=== PATIENT | male | born 1960 | race Caucasian/White ===

== ENCOUNTER 2023-08-12 14:18 | Inpatient (IN) | payer OTHER, SELFPAY ==
[2023-08-12] VITALS (11 sets, daily range): BP systolic 114–163; BP diastolic 62–108; BMI 38.0
--- NOTE | 2023-08-12 09:34 | ED.GENMED ---
History of Present Illness
<Fanta Villaseñor PA-C - Last Filed: 08/12/23 13:52>
General
Chief Complaint: Skin Problem
Source: patient
Exam Limitations: none
Time Seen by Provider: 08/12/23 09:29
Nursing documentation reviewed up to this point in time: agreed with
Travel History
Have you had any contact with someone who has COVID-19?: No
Do you have any symptoms of coronavirus? Fever > 100 degrees, chills, cough, shortness of breath, sore throat, loss of taste or smell, muscle aches, or headache?: No
History of Present Illness
History of Present Illness:
63-year-old male with history of hypertension presenting emergency department today with concerns of a rash on his right lower extremity. Patient states that it started as a small break in his skin a week ago, and yesterday he noticed a rash
surrounding the lesion as well as swelling and a rash extending the anterior surface of his right lower extremity. Patient also states that he woke up with a fever of 102 yesterday. Patient also states that he has had abdominal pain, nausea,
vomiting throughout last night. 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 Patient has never had anything like this before. Patient denies any history of long distance travel,
new medications, recent hospitalizations, cancer.
Past History
<Fanta Villaseñor PA-C - Last Filed: 08/12/23 13:52>
Past History
ED Past Medical History: HTN and Other (Chronic back pain)
ED Past Surgical History: Orthopedic (Lumbar laminectomy June 2011)
Social History
Alcohol: Occasional
Personal:
Living: with family
Employment: Employed
Review of Systems
<Fanta Villaseñor PA-C - Last Filed: 08/12/23 13:52>
Review of Systems
All Other Systems: ROS reviewed and negative except as documented in HPI and ROS
Phy Exam
<Fanta Villaseñor PA-C - Last Filed: 08/12/23 13:52>
Physical Exam
Physical Exam:
General: Patient is well appearing and in no acute distress; non-toxic
Skin: Warm and dry, small abrasion noted to the dorsum of the foot with surrounding erythema and swelling/warmth, with a small break and erythema extending again to the right anterior calf. No open lesions, no drainage, no subcutaneous nodules.
Head: Normocephalic, atraumatic
Eyes: Sclera non-icteric. EOMs intact.
Cardiac: Regular rate and rhythm, no murmurs.
Peripheral Vascular: 2+ dorsalis pedis pulses b/l.
Pulm: Normal respiratory effort. no wheezes, rales, or rhonchi
Abdomen: No abdominal tenderness to palpation.
Musculoskeletal: 5/5 strength in bilateral upper extremities. No bony tenderness to palpation of the right lower extremity.
Neuro: CN II-XII intact, no focal neurologic deficits.
Psychiatric: Appropriate mood and affect.
Course
<Fanta Villaseñor PA-C - Last Filed: 08/12/23 13:52>
Orders/Labs/Results
Orders:
Orders
08/12/23 10:00
Blood Culture Q30M
QUETA Source: Blood/Venous
Specimen Description:
08/12/23 10:10
Complete Blood Count/With Diff Urgent
Comprehensive Metabolic Panel Urgent
08/12/23 10:19
Acetaminophen [Tylenol] 650 mg PO NOW STA
08/12/23 10:26
Cephalexin Monohydrate [Keflex] 500 mg PO NOW STA
Sulfamethox./Trimethoprim Ds [Bactrim Ds 800 mg/160 mg] 1 tablet PO NOW STA
08/12/23 10:30
Blood Culture Q30M
QUETA Source: Blood/Venous
Specimen Description:
08/12/23 10:58
CeFAZolin 2 GRAM [Ancef] 2 grams in 10 ml IV NOW
08/12/23 12:21
HYDROmorphone [Dilaudid] 0.5 mg IV NOW STA
Ondansetron Injectable [Zofran] 4 mg IV NOW STA
08/12/23 14:00
VANCOMYCIN Pharmacy to Dose [VANCOCIN Pharmacy to Dose] 1 each Pharmacy To Prepare [Call Pharmacy To Prepare] 0 ml IV PER PROTOCOL
Abnormal Lab Results
08/12/23
10:10
WBC 22.6 H 10^3/uL
(4.8-10.8)
RBC 4.63 L 10^6/uL
(4.70-6.10)
MCH 31.1 H pg
(27.0-31.0)
Abs Immat Gran (auto) 0.1 H 10^3/uL
(0-0.05)
Absolute Neuts (auto) 20.3 H 10^3/uL
(1.4-6.5)
Absolute Lymphs (auto) 1.1 L 10^3/uL
(1.2-3.4)
Absolute Monos (auto) 1.0 H 10^3/uL
(0.1-0.6)
Neutrophils % 90.0 H %
(42.2-75.2)
Lymphocytes % 4.7 L %
(20.5-51.1)
Glucose 126 H mg/dl
(70-99)
Total Bilirubin 1.7 H mg/dl
(0.2-1.3)
08/12/23 10:10
08/12/23 10:10
Vital Signs
Initial and Last Documented VS:
Initial Vital Signs
Temp Pulse Resp BP Pulse Ox
99.9 F 108 18 152/108 95
08/12/23 09:19 08/12/23 09:19 08/12/23 09:19 08/12/23 09:19 08/12/23 09:19
Last Documented Vital Signs
Temp Pulse Resp BP Pulse Ox
99.9 F 75 17 150/97 99
08/12/23 09:19 08/12/23 12:30 08/12/23 12:30 08/12/23 12:00 08/12/23 11:00
<Jomar Huffman, DO - Last Filed: 08/12/23 10:49>
Orders/Labs/Results
Orders:
Orders
08/12/23 10:00
Blood Culture Q30M
QUETA Source: Blood/Venous
Specimen Description:
08/12/23 10:10
Complete Blood Count/With Diff Urgent
Comprehensive Metabolic Panel Urgent
08/12/23 10:19
Acetaminophen [Tylenol] 650 mg PO NOW STA
08/12/23 10:26
Cephalexin Monohydrate [Keflex] 500 mg PO NOW STA
Sulfamethox./Trimethoprim Ds [Bactrim Ds 800 mg/160 mg] 1 tablet PO NOW STA
08/12/23 10:30
Blood Culture Q30M
QUETA Source: Blood/Venous
Specimen Description:
08/12/23 10:58
CeFAZolin 2 GRAM [Ancef] 2 grams in 10 ml IV NOW
08/12/23 12:21
HYDROmorphone [Dilaudid] 0.5 mg IV NOW STA
Ondansetron Injectable [Zofran] 4 mg IV NOW STA
08/12/23 14:00
VANCOMYCIN Pharmacy to Dose [VANCOCIN Pharmacy to Dose] 1 each Pharmacy To Prepare [Call Pharmacy To Prepare] 0 ml IV PER PROTOCOL
Abnormal Lab Results
08/12/23
10:10
WBC 22.6 H 10^3/uL
(4.8-10.8)
RBC 4.63 L 10^6/uL
(4.70-6.10)
MCH 31.1 H pg
(27.0-31.0)
Abs Immat Gran (auto) 0.1 H 10^3/uL
(0-0.05)
Absolute Neuts (auto) 20.3 H 10^3/uL
(1.4-6.5)
Absolute Lymphs (auto) 1.1 L 10^3/uL
(1.2-3.4)
Absolute Monos (auto) 1.0 H 10^3/uL
(0.1-0.6)
Neutrophils % 90.0 H %
(42.2-75.2)
Lymphocytes % 4.7 L %
(20.5-51.1)
Glucose 126 H mg/dl
(70-99)
Total Bilirubin 1.7 H mg/dl
(0.2-1.3)
08/12/23 10:10
08/12/23 10:10
Vital Signs
Initial and Last Documented VS:
Initial Vital Signs
Temp Pulse Resp BP Pulse Ox
99.9 F 108 18 152/108 95
08/12/23 09:19 08/12/23 09:19 08/12/23 09:19 08/12/23 09:19 08/12/23 09:19
Last Documented Vital Signs
Temp Pulse Resp BP Pulse Ox
99.9 F 75 17 150/97 99
08/12/23 09:19 08/12/23 12:30 08/12/23 12:30 08/12/23 12:00 08/12/23 11:00
[place];Fanta Villaseñor PA-C - Last Filed: 08/12/23 13:52>
MDM/Problems Addressed
Differential Diagnosis Includes:
Differentials include cellulitis, erysipelas, septic arthritis, sporotrichosis�
MDM/Problems Addressed:
Right lower extremity pain
Chronic conditions affecting care:
high blood pressure
Chronic conditions affecting care: HTN
<Fanta Villaseñor PA-C - Last Filed: 08/12/23 13:52>
*Critical Care Note
Total Time (30-74mins, 75-104mins- exclusive of procedures): Not Applicable
<Fanta Villaseñor PA-C - Last Filed: 08/12/23 13:52>
Patient Management
Escalation/DeEscalation of care consider admission/obs:
63-year-old male with history of hypertension presenting emergency department today with concerns of a rash on his right lower extremity. Patient states that started yesterday. Patient also has a fever and has had nausea and vomiting overnight.
Considering patient's rapid onset of the rash, his fever, and his elevated white count, we will admit for IV antibiotics.
<Fanta Villaseñor PA-C - Last Filed: 08/12/23 13:52>
Update Note
Update Note:
12:24 pm-- I was called into the room by nursing that patient is now having severe right knee pain and nausea, does not appear that the rash is spreading to the knee. Pain medication ordered
ED Attending Note
<Fanta Villaseñor PA-C - Last Filed: 08/12/23 13:52>
-
Portions of this chart may have been created with voice recognition software.� Occasional wrong word or��sound alike� substitutions may have occurred due to the inherent limitations of voice recognition software.
<Jomar Huffman DO - Last Filed: 08/12/23 10:49>
ED Attending Note
Patient seen and examined by attending physician: Yes
I performed the substantive portion of visit, reviewed & personally made and approve the management plan that is documented in note by myself or JUAN JOSE.: Yes
ED Attending Note:
I have seen and evaluated the patient with a [id number] encounter. I have spoken to the advance practicer provider and involved in the medical history, the physical exam, medical decision making.
Evaluation and management service: agree unless noted differently below.
Results interpretation: agree unless noted differently below.
Focused HPI: 63-year-old male presenting for evaluation of cellulitis. He did have an abrasion on the dorsum of his right foot several days ago. He noticed the progression of redness over the past 24 hours.
Physical exam: Erythema noted to dorsum of right foot. Small abrasion noted. Foot is neurovascularly intact. No crepitus
Medical Decision Making: Family concerned about DVT. The erythema to his sanchez on his foot is anterior. There is no tenderness to deep venous palpation. Discussed low yield and ultrasound. Exam is more consistent with cellulitis. Given the rapid
progression, will start Keflex and Bactrim
Update:
10:50 AM patient found to have leukocytosis of 22. Given the fevers at home, the leukocytosis and the rapid progression of cellulitis, will give dose of Ancef and admit
Discharge Plan
Departure
Patient Disposition: Admit
Date of Disposition: 08/12/23
Time of Disposition: 11:02
Admit to: Med/Surg
Presentation/result/management discussed w/ accepting MD/DO: Hospitalist
Patient with high blood pressure during this ER visit?: Yes
Condition: Fair
Discharge Problem:
Cellulitis
Prescriptions:
No Action
Theragran Tablet
1 tab PO DAILY
amlodipine 10 mg tablet
10 mg PO DAILY
diphenhydramine HCl [Benadryl] 25 mg Capsule
50 mg PO DAILYPRN PRN (Reason: allergic reaction)
ibuprofen 200 mg Tablet
400 mg PO Q6H PRN (Reason: mild pain)
losartan 100 mg tablet
100 mg PO DAILY
Artificial Tears (PF) Dropperette
1 drp BOTH EYES QIDPRN PRN (Reason: dry eyes)
Referrals:
Lizette Lamar MD [Family Provider] -
Interventions
Interventions:
*Risk Screen - Suicide Last Done: 08/12/23 09:19
*General Assessment Last Done: 08/12/23 09:19
*Neglect/Abuse Screening Last Done: 08/12/23 09:19
ED- Fall Risk Assessment Last Done: 08/12/23 11:00
*ED COVID-19 Vaccine History Last Done: 08/12/23 09:19
ED-Skin Assessment Last Done: 08/12/23 10:01
Discharge Date and Time
Print Language: OCCITAN
[2023-08-12 10:17] LABS: % Basophils 0.3 % (0-2); % Immature Granulocytes 0.4 % (0-0.5); % Lymphocytes 4.7 % (20.5-51.1); % Monocytes 4.6 % (1.7-9.3); Absolute Basophils 0.1 10^3/uL (0-0.2); Absolute Immature Granulocytes 0.1 10^3/uL (0-0.05); Absolute Lymphocytes 1.1 10^3/uL (1.2-3.4); Absolute Neutrophils 20.3 10^3/uL (1.4-6.5); Hematocrit 42.4 % (39.0-52.0); Hemoglobin 14.4 g/dL (13.0-18.0); Mean Corpuscular Hgb 31.1 pg (27.0-31.0); Mean Corpuscular Volume 91.6 fL (80.0-94.0); Mean Platelet Volume 9.7 fL (7.4-10.4); Nucleated Red Blood Cells % 0 % (-); Platelet Count 231 10^3/uL (130-400); Red Blood Cell Count 4.63 10^6/uL (4.70-6.10); Red Cell Dist. Width 13.1 % (11.5-14.5); White Blood Cell Count 22.6 10^3/uL (4.8-10.8)
[2023-08-12] MEDS: TYLENOL 650 MG PO (10:23)
[2023-08-12] MEDS: BACTRIM DS 800 MG/160 MG 1 TABLET PO (10:32)
[2023-08-12] MEDS: KEFLEX 500 MG PO (10:32)
[2023-08-12 10:41] LABS: ALT (SGPT) 19 U/L (0-50); AST (SGOT) 26 U/L (17-59); Albumin 4.5 g/dl (3.5-5.0); Alkaline Phosphatase 103 U/L (38-126); Blood Urea Nitrogen 15 mg/dl (9-20); Carbon Dioxide 23 mmol/L (22-30); Chloride 104 mmol/L (98-107); Estimated Creatinine Clearance > 125 ml/min; Glucose 126 mg/dl (70-99); Potassium 4.4 mmol/L (3.5-5.1); Sodium 138 mmol/L (135-145); Total Bilirubin 1.7 mg/dl (0.2-1.3); Total Protein 7.4 g/dl (6.3-8.2); eGFR > 60.00
[2023-08-12] MEDS: ANCEF 10 IV ×2 (11:11→20:12)
[2023-08-12] MEDS: DILAUDID 0.5 MG IV ×2 (12:24→23:27)
[2023-08-12] MEDS: ZOFRAN 4 MG IV (12:24)
--- NOTE | 2023-08-12 12:25 | HPS.HSE ---
Family Physician
-
Family Physician: Lizette Lamar
Chief Complaint
-
Right lower extremity rash
History of Present Illness
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 Patient reporting noting a small wound on his foot a week ago after doing
yard work. No further issues until 24 hours ago when he noticed increased swelling erythema pain rash going from his foot to his knee. Patient also noted right knee pain and a fever 102 at home with associate abdominal discomfort nausea appetite
loss 1 episode of vomiting nonbloody. Denies coughing sneezing chest abdomen pain palpitations numbness tingling shortness of breath. Received IV Ancef and Dilaudid in ED with subsequent improvement in symptoms including decreased
rash/swelling/pain. Afebrile vital signs stable. Labs were notable for leukocytosis 22 and mild bilirubin elevation 1.7 no LFT dysfunction noted.
Medical History
Past Medical History
Past Medical History: Reports Other (As above)
Past Surgical History: Reports Other
Additional Past Surgical History:
Orthopedic (Lumbar laminectomy June 2011)
Social History
Tobacco: Non-smoker
Alcohol: Occasional
Drug: Marijuana (Occasional marijuana gummy last week ago)
Personal:
Living: With Family
Employment: Retired
Family History
Family History: Not pertinent (Reviewed)
Allergies / Home Medications
Allergies reflects when Allergies were last updated in [employer].
Home Medications with original date entered in [employer] [facility]
Allergy/Medication List:
Allergies
Allergy/AdvReac Type Severity Reaction Status Date / Time
No Known Allergies Allergy Verified 08/12/23 09:18
Home Medications
amlodipine 10 mg tablet 10 mg PO DAILY Blood Pressure 08/12/23
dextran 70-hypromellose eye drops in a dropperette (Artificial Tears (PF) drops in a dropperette) 1 drp BOTH EYES QIDPRN PRN dry eyes 08/12/23
diphenhydramine HCl 25 mg capsule (Benadryl) 50 mg PO DAILYPRN PRN allergic reaction 08/12/23
ibuprofen 200 mg tablet 400 mg PO Q6H PRN mild pain 08/12/23
losartan 100 mg tablet 100 mg PO DAILY Blood Pressure 08/12/23
therapeutic multivitamin 1 tab PO DAILY Supplement 08/12/23
Review of Systems
-
A 12 point ROS was completed and negative except as noted: Yes
Constitutional: Reports Other (As below)
Physical Exam
Vital Signs
Vital Signs
Temp Pulse Resp BP Pulse Ox
99.9 F 83 34 124/65 99
08/12/23 09:19 08/12/23 11:15 08/12/23 11:15 08/12/23 11:00 08/12/23 11:00
Physical Exam
General: Other (As below)
Laboratory Results
-
08/12/23 10:10
08/12/23 10:10
Laboratory Results
Total Bilirubin 1.7 mg/dl (0.2-1.3) H 08/12/23 10:10
AST 26 U/L (17-59) 08/12/23 10:10
ALT 19 U/L (0-50) 08/12/23 10:10
Alkaline Phosphatase 103 U/L (38-126) 08/12/23 10:10
Impression/Plan
-
ROS
General: Reports fever
Neuro: Denies seizure shaking loss of consciousness dizziness vertigo
Psych: denies depression hallucinations confusion manic episodes
Endocrine: Denies polyuria polydipsia polyphagia heat/cold intolerance
HEENT: Denies blindness visual disturbances epistaxis
Pulmonary: denies coughing hemoptysis sneezing sob dyspnea on exertion
Cardiovascular: denies chest pain palpitations leg swelling
Hematology: denies signs symptoms of anemia easy bruising/bleeding
Gastrointestinal: denies nausea vomiting diarrhea constipation hematemesis hematochezia melena
Genito-Urinary: denies retention incontinence dysuria
Musculoskeletal: Reports right knee pain weakness
Dermatology: Reports right lower extremity rash small wound dorsal right foot
Physical Exam
General: No pallor, cyanosis, or jaundice.
HEENT: Throat clear. PERRLA Normocephalic atraumatic
NECK: Supple. No JVD Carotid Bruits
RESPIRATORY: Lungs clear to auscultation. No crackles wheezes stridor
CVS: S1, S2 normal. RRR. No murmur, rub or gallop.
ABDOMEN: Soft, non-tender. No distension. BS+/normal.
EXTREMITIES: Right lower extremity erythema noted dorsal right foot mid right sanchez, some swelling mild palpable effusion right knee noted nontender
NURSE LDR: AOx3
IMPRESSION:
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 Rash started from a small wound right
foot patient obtained a week ago while doing yard work.
PLAN:
#Severe cellulitis
#Right knee pain arthritis
Empiric IV cefazolin and vancomycin
MRSA screen
Follow blood cultures
Follow right knee x-ray
Pain control as needed Tylenol ibuprofen Dilaudid
Trend WBC
#Hypertension
Continue home amlodipine and losartan with holding parameters
#EKG notes NSR new left bundle branch block mild QT prolongation
patient monitor
Follow-up repeat EKG in a.m.
Minimize avoid QT prolonging agents as possible
DVT prophylaxis Lovenox
GI prophylaxis Protonix
Meds reconciled resume as appropriate
Full code
I spent a total of 81 minutes with the patient or on the floor. More than 50% of this time involved counseling and coordination of care.
--- NOTE | 2023-08-12 14:33 | PHA.VAN.IN ---
Assessment
- Assessment
Renal Function: Appears similar to baseline
AUC Dosing Plan
- Dosing Variables
Dosing Weight (kg): 120
Dosing CrCl (ml/min): 125
Vd coefficient (L/kg): 0.6
- Empiric Dosing
Initial / Loading Dose: 2000mg - administration pending
Maintenance Regimen: Vanc 1750mg Q12H starting 08/12 06
Estimated AUC (mcg*h/mL): 498
Estimated Peak (mcg*h/mL): 33.4
Estimated Trough (mcg/ml): 11.3
Estimated Half Life (H): 6.4
- Monitoring
No levels ordered at this time: consider levels in next few days
Pharmacokinetics Vancomycin I
- -
Patient Age: 63
Patient Sex: Male
Vancomycin Day #: 1
Indication: Skin And Soft Tissue
Requesting Provider: Dr. Wheatley
Pertinent Antimicrobial Allergies:
NKDA
Height / Weight:
Height 5 ft 10 in
Actual Weight 120.1 kg
Pertinent Past Medical History: BMI ~38
- Vital Signs / Lab Results
Temp Pulse Resp BP Pulse Ox
99.9 F 81 27 130/69 99
08/12/23 09:19 08/12/23 13:45 08/12/23 13:45 08/12/23 13:00 08/12/23 11:00
Lab Results - Hematology
08/12/23
10:10
WBC 22.6 H
Lab Results - Chemistry
08/12/23
10:10
BUN 15
Creatinine 0.7
Estimated Creat Clear > 125
Albumin 4.5
[2023-08-12] MEDS: VANCOCIN 540 MG IV (14:38)
[2023-08-12] MEDS: LOVENOX 40 MG SC (18:36)
[2023-08-12] MEDS: MOTRIN 400 MG PO (20:12)
[2023-08-12] MEDS: THIAMINE INJECTION 200 MG IV (20:13)
[2023-08-13] MEDS: ANCEF 10 IV ×3 (04:10→19:47)
[2023-08-13] MEDS: VANCOCIN 535 MG IV ×2 (05:37→17:05)
[2023-08-13] MEDS: MOTRIN 400 MG PO (05:43)
[2023-08-13 07:00] VITALS: BP 105/66
--- NOTE | 2023-08-13 07:16 | W.PN.HOSP.TC ---
Today's Communication/Plan
-
Orthopedic eval
follow cultures
cont abx
PT/OT
Assessment / Plan
Assessment / Plan
Physical Exam
General: No pallor, cyanosis, or jaundice.
HEENT: Throat clear. PERRLA Normocephalic atraumatic
NECK: Supple. No JVD Carotid Bruits
RESPIRATORY: Lungs clear to auscultation. No crackles wheezes stridor
CVS: S1, S2 normal. RRR. No murmur, rub or gallop.
ABDOMEN: Soft, non-tender. No distension. BS+/normal.
EXTREMITIES: Right lower extremity erythema noted dorsal right foot mid right sanchez, some swelling mild palpable effusion right knee noted nontender
FINANCIAL COACH: AOx3
IMPRESSION:
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 Rash started from a small wound right
foot patient obtained a week ago while doing yard work.
PLAN:
#Severe cellulitis
#Right knee pain arthritis
Empiric IV cefazolin and vancomycin
MRSA screen
Follow blood cultures
knee x-ray appreciated no fractures, possible suprapatellar effusion (effusion is notable and palpable on physical exam)
Pain control as needed Tylenol ibuprofen Dilaudid
Trend WBC
Orthopedic eval requested question possible gout/pseudogout vs septic arthritis (less likely)
#Hypertension
Continue home amlodipine and losartan with holding parameters
#EKG notes NSR new left bundle branch block mild QT prolongation
cardiac monitor
Follow-up repeat EKG in a.m. continues to note LBBB, QT improved
PT/OT appreciated possible benefit outpt PT vs no needs
DVT prophylaxis Lovenox
GI prophylaxis Protonix
Full code
I spent a total of 50 minutes with the patient or on the floor. More than 50% of this time involved counseling and coordination of care.
Anticipated Discharge: 24 - 48 hours
Subjective/Interval History
-
Date of Service: August 13, 2023
Patient reports overall feeling well though right knee swelling pain however persists.
Objective Data
-
Labs:
Laboratory Results
08/13/23
06:00
WBC Pending
Hgb Pending
Hct Pending
Plt Count Pending
Sodium Pending
Potassium Pending
Chloride Pending
Carbon Dioxide Pending
BUN Pending
Creatinine Pending
Glucose Pending
Calcium Pending
Vital Signs:
Vital Signs
Temp Pulse Resp BP Pulse Ox
100.5 F H 79 18 114/67 93
08/12/23 23:11 08/12/23 23:11 08/12/23 23:11 08/12/23 23:11 08/12/23 23:11
I&O
08/12/23 08/13/23 08/14/23
06:59 06:59 06:59
Output Total 200 / 200
Balance -200 / -200
[2023-08-13 08:13] LABS: Hematocrit 35.4 % (39.0-52.0); Mean Corp Hgb Conc. 33.9 g/dL (33.0-37.0); Mean Corpuscular Hgb 30.8 pg (27.0-31.0); Mean Platelet Volume 9.8 fL (7.4-10.4); Platelet Count 190 10^3/uL (130-400); Red Blood Cell Count 3.89 10^6/uL (4.70-6.10); Red Cell Dist. Width 13.3 % (11.5-14.5); White Blood Cell Count 13.4 10^3/uL (4.8-10.8)
[2023-08-13] MEDS: COZAAR PO (08:18)
[2023-08-13] MEDS: FOLVITE 1 MG PO (08:18)
[2023-08-13] MEDS: THIAMINE INJECTION 200 MG IV ×2 (08:18→19:47)
[2023-08-13] MEDS: PROTONIX 40 MG PO (08:18)
[2023-08-13] MEDS: THERAGRAN 1 TABLET PO (08:18)
[2023-08-13] MEDS: NORVASC PO (08:18)
[2023-08-13 08:54] VITALS: BP 126/83; PULSE 75; PULSE 76; O2SAT 94; O2SAT 95
[2023-08-13 08:55] LABS: Blood Urea Nitrogen 17 mg/dl (9-20); Carbon Dioxide 24 mmol/L (22-30); Chloride 104 mmol/L (98-107); Estimated Creatinine Clearance > 125 ml/min; Glucose 109 mg/dl (70-99); Magnesium 2.1 mg/dl (1.6-2.3); Sodium 134 mmol/L (135-145); eGFR > 60.00
--- NOTE | 2023-08-13 08:57 | PHA.VAN.FU ---
Vancomycin Assessment / Plan
- Assessment
Renal Function: Stable
WBC's are: Trending Down
In the past 24 hrs, patient has been: Febrile (Tmax 100.8 F - oral - 08/11 17:59)
Concomitant Antimicrobials: cefazolin
- Dosing Plan
Continue: Vanc 1750mg Q12H
- Monitoring Plan
No level(s) ordered at this time: consider levels in next few days
- Follow Up
Pharmacy will continue to follow.
Vancomycin Follow UP
- -
Patient Age: 63
Patient Sex: Male
Vancomycin Day #: 2
Indication: Skin And Soft Tissue
Requesting Provider: Dr. Wheatley
Pertinent Antimicrobial Allergies:
NKDA
Height / Weight:
Height 5 ft 10 in
Actual Weight 120.1 kg
Pertinent Past Medical History: BMI ~38
- Vital Signs / Lab Results
Temp Pulse Resp BP Pulse Ox
98.2 F 74 16 105/66 95
08/13/23 07:00 08/13/23 07:00 08/13/23 07:00 08/13/23 08:18 08/13/23 07:00
Lab Results - Hematology
08/12/23 08/13/23
10:10 07:36
WBC 22.6 H 13.4 H
Lab Results - Chemistry
08/12/23 08/13/23
10:10 07:36
BUN 15 17
Creatinine 0.7 0.7
Estimated Creat Clear > 125 > 125
Albumin 4.5
--- NOTE | 2023-08-13 09:03 | PTOTSP ---
pt currently demonstrates ability to complete simple ADLs, functional transfers, ambulation with supervision to no assistance. will defer to PT for ambulation. no acute OT needs identified at this time, will sign off.
[2023-08-13 09:21] LABS: Hepatitis C Antibody Negative (Negative)
--- NOTE | 2023-08-13 12:41 | CON.ORTHO ---
Addendum entered and electronically signed by Freddie Zaidi MD 08/13/23 17:24:
Patient seen and examined. Agree with below. Will check cultures. Knee not appearing septic. Already on IV antibiotics for cellulitis and improving. No crystals on aspirate. Will follow patient and cultures.
Original Note:
Consultation
-
Date/Time Consultation Requested: August 08
Date/Time Consultation Performed: August 08
Requesting Provider: Dioni
Performing Provider: Tisha Zaidi
Reason for Consultation: Right knee swelling
Consultation - Orthopedics
History
Dictation#[id number]
Asked to see this very pleasant 63-year-old white male with PMH of HTN remote Hx of MRSA (from upper thigh wound which is no longer present) who was admitted through the [facility] with progressive worsening RLE redness, Tmax 102 at home who was found
to be with leukocytosis upon admission. Admits to doing yard work last week and sustaining abrasion to the dorsum of the foot. The rash/cellulitis seem to progress over the last week. Also reports increased swelling of the right knee. Does
report a history of ACL injury of the right knee in the remote past- no surgery. A few months ago he did strain at skiing but did not seek any official care. He is currently afebrile and on IV Ancef and vancomycin. no history of gout. We have
been requested in consultation with regards to his right knee. The redness of his RLE has improved
Allergies / Home Medications
Allergy/AdvReac Type Severity Reaction Status Date / Time
No Known Allergies Allergy Verified 08/12/23 09:18
�Medication �Instructions �Recorded
amlodipine 10 mg tablet 10 mg PO DAILY Blood Pressure 08/12/23
dextran 70-hypromellose eye drops 1 drp BOTH EYES QIDPRN PRN dry eyes 08/12/23
in a dropperette (Artificial Tears
(PF) drops in a dropperette)
diphenhydramine HCl 25 mg capsule 50 mg PO DAILYPRN PRN allergic 08/12/23
(Benadryl) reaction
ibuprofen 200 mg tablet 400 mg PO Q6H PRN mild pain 08/12/23
losartan 100 mg tablet 100 mg PO DAILY Blood Pressure 08/12/23
therapeutic multivitamin 1 tab PO DAILY Supplement 08/12/23
Vital Signs / Lab Results
Temp Pulse Resp BP Pulse Ox
98.2 F 74 16 105/66 95
08/13/23 07:00 08/13/23 07:00 08/13/23 07:00 08/13/23 08:18 08/13/23 08:25
08/13/23 07:36
08/13/23 07:36
Assessment / Plan
PE: Afeb. Right knee with no erythema and slight warmth. moderate to large intra-articular effusion. 5 to 90 degrees with discomfort. Generalized pain to palpation. very mild erythema in the pretibial region which he subjectively reports has
drastically improved. calf soft and nontender. Small abrasion over the dorsum of the foot without any signs of infection. neurovascularly intact
WBC- 13.4 down from 22.6
Xray: Right knee with very minimal arthritic changes at best. No acute abnormalities. Suprapatellar effusion noted
Impression: Right knee effusion, r/o septic joint, gout, CPPD
Plan: Discussed at length with the patient. He has a rather large effusion, which would therapeutically and diagnostically be best served with a bedside aspiration. discussed with attending hospitalist, Dr. Wheatley. Obviously he is already on IV
ABX, which may cloud culture results. will also request cell count, crystal analysis, and Lyme. Once culture results are made available we will discuss more definitive management. If he does by chance have a positive culture we will need to
discuss arthroscopic I&D. after obtaining his verbal consent 85 cc yellow cloudy fluid was sterilely aspirated from the right knee. Continue with elevation and icing treatments. Will follow.
[2023-08-13 14:08] LABS: Body Fluid Mononuclear 8.5 %; Body Fluid Polymorphonuclear 91.5 %; Body Fluid WBC 47430 /CUMM
[2023-08-13 14:11] LABS: Body Fluid Second Tech EM
[2023-08-13 15:00] VITALS: BP 149/82
[2023-08-13] MEDS: LOVENOX 40 MG SC (17:04)
[2023-08-13 19:35] VITALS: BP 128/92
[2023-08-13 23:05] VITALS: BP 139/76
[2023-08-14] MEDS: DILAUDID 0.5 MG IV (02:04)
[2023-08-14 03:32] VITALS: BP 114/67
[2023-08-14] MEDS: ANCEF 10 IV ×3 (04:21→19:44)
[2023-08-14] MEDS: VANCOCIN 535 MG IV ×2 (05:58→17:12)
--- NOTE | 2023-08-14 07:12 | W.PN.UPDATE ---
Update Note
Progress Note Update
Patient seen and examined. No fevers reported overnight. No erythema about the right knee. Swelling has returned. Erythema has improved distally. CBC pending. Joint fluid reveals no crystals and no organisms with many WBCs. Fluid taken with
patient already on IV antibiotics. Review labs and micro as available. Will make NPO after midnight in case knee worsens over the next 24 hours. Will observe on IV antibiotics.
[2023-08-14] MEDS: FOLVITE 1 MG PO (07:30)
[2023-08-14] MEDS: PROTONIX 40 MG PO (07:30)
[2023-08-14] MEDS: THERAGRAN 1 TABLET PO (07:30)
[2023-08-14] MEDS: THIAMINE INJECTION 200 MG IV ×2 (07:30→19:44)
[2023-08-14] MEDS: COZAAR 100 MG PO (07:30)
[2023-08-14] MEDS: NORVASC 10 MG PO (07:30)
[2023-08-14 07:35] VITALS: BP 145/86
[2023-08-14 07:52] LABS: Hematocrit 33.8 % (39.0-52.0); Hemoglobin 11.6 g/dL (13.0-18.0); Mean Corp Hgb Conc. 34.3 g/dL (33.0-37.0); Mean Corpuscular Hgb 31.3 pg (27.0-31.0); Mean Corpuscular Volume 91.1 fL (80.0-94.0); Mean Platelet Volume 10.3 fL (7.4-10.4); Platelet Count 179 10^3/uL (130-400); Red Blood Cell Count 3.71 10^6/uL (4.70-6.10); Red Cell Dist. Width 12.9 % (11.5-14.5); White Blood Cell Count 9.4 10^3/uL (4.8-10.8)
--- NOTE | 2023-08-14 07:53 | W.PN.HOSP.TC ---
Today's Communication/Plan
-
repeat blood cultures
follow up blood culture speciation
cont abx
npo after midnight as per Orthopedic
Right lower ext elevation when at rest, ice application prn knee and right foot
Assessment / Plan
Assessment / Plan
Physical Exam
General: No pallor, cyanosis, or jaundice.
HEENT: Throat clear. PERRLA Normocephalic atraumatic
NECK: Supple. No JVD Carotid Bruits
RESPIRATORY: Lungs clear to auscultation. No crackles wheezes stridor
CVS: S1, S2 normal. RRR. No murmur, rub or gallop.
ABDOMEN: Soft, non-tender. No distension. BS+/normal.
EXTREMITIES: Right lower extremity erythema noted dorsal right foot mid right sanchez (resolving), some swelling mild palpable effusion right knee noted nontender, persistent right foot swelling
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
IMPRESSION:
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 Rash started from a small wound right
foot patient obtained a week ago while doing yard work.
PLAN:
#Severe cellulitis
#Right knee pain arthritis
Empiric IV cefazolin and vancomycin
MRSA screen
prelim single anaerobic bottle pos for gram neg bacilli, follow up speciation, blood cultures repeated
knee x-ray appreciated no fractures, possible suprapatellar effusion (effusion is notable and palpable on physical exam)
Pain control as needed Tylenol ibuprofen Dilaudid
Fever high 100.8 overnight 08/11 since resolved
Leukocytosis resolved
Orthopedic eval appreciated s/p arthrocentesis 08/12 85 cc fluid removed, arthrocentesis fluid cx NGTD, npo after midnight for possible arthroscopic I&D tomorrow 08/14 if knee/clinical presentation worsens
Right lower ext elevation when at rest, Ice application prn right knee foot swelling
#Hypertension
Continue home amlodipine and losartan with holding parameters
#EKG notes NSR new left bundle branch block mild QT prolongation
Follow-up repeat EKG in a.m. continues to note LBBB, QT improved
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
outpatient follow up recommended
PT/OT appreciated possible benefit outpt PT vs no needs
DVT prophylaxis Lovenox
GI prophylaxis Protonix
Full code
I spent a total of 50 minutes with the patient or on the floor. More than 50% of this time involved counseling and coordination of care.
Anticipated Discharge: 24 - 48 hours
Subjective/Interval History
-
Date of Service: August 14, 2023
Seen and examined at bedside. Continues to report right knee pain and right foot swelling though rash/erythema resolving.
Objective Data
-
Labs:
Laboratory Results
08/14/23
06:31
WBC Pending
Hgb Pending
Hct Pending
Plt Count Pending
Sodium Pending
Potassium Pending
Chloride Pending
Carbon Dioxide Pending
BUN Pending
Creatinine Pending
Glucose Pending
Calcium Pending
Vital Signs:
Vital Signs
Temp Pulse Resp BP Pulse Ox
99.1 F 82 18 145/86 96
08/14/23 04:27 08/14/23 07:30 08/14/23 03:32 08/14/23 07:30 08/14/23 03:32
I&O
08/13/23 08/14/23 08/15/23
06:59 06:59 06:59
Intake Total 1416 / 1416
Output Total 200 / 200
Balance -200 / -200 1416 / 1416
[2023-08-14 08:31] LABS: Blood Urea Nitrogen 13 mg/dl (9-20); Calcium 8.7 mg/dl (8.4-10.2); Carbon Dioxide 26 mmol/L (22-30); Chloride 105 mmol/L (98-107); Estimated Creatinine Clearance > 125 ml/min; Glucose 95 mg/dl (70-99); Magnesium 2.2 mg/dl (1.6-2.3); Potassium 4.4 mmol/L (3.5-5.1); Sodium 136 mmol/L (135-145); eGFR > 60.00
--- NOTE | 2023-08-14 11:50 | CM ---
Patient seen bedside.
IA completed.
Patient lives with spouse in 2 story home, independent prior to admission without assistive device.
Patient drives, retired.
PCP; Dr Lamar
Pharmacy: [facility]
Discussed possibility of IV anbx with patient and reviewed options list. per patient possible OR tomorrow.
Plan: home, possible IV anbx when stable.
--- NOTE | 2023-08-14 12:03 | PHA.VAN.FU ---
Vancomycin Assessment / Plan
- Assessment
Renal Function: Stable
WBC's are: WNL
In the past 24 hrs, patient has been: Afebrile
Concomitant Antimicrobials: cefazolin
- Dosing Plan
Continue: vancomycin 1750 mg q12h - first dose 08/12 06
- Monitoring Plan
Peak Level: 08/130 - after 4th 1750 mg dose
Trough Level: 08/14 529
- Follow Up
Pharmacy will continue to follow.
Vancomycin Follow UP
- -
Patient Age: 63
Patient Sex: Male
Vancomycin Day #: 3
Indication: Skin And Soft Tissue
Requesting Provider: Dr. Wheatley
Pertinent Antimicrobial Allergies:
NKDA
Height / Weight:
Height 5 ft 10 in
Actual Weight 120.1 kg
Pertinent Past Medical History: BMI ~38
- Vital Signs / Lab Results
Temp Pulse Resp BP Pulse Ox
98.0 F 82 19 145/86 95
08/14/23 07:35 08/14/23 07:35 08/14/23 07:35 08/14/23 07:35 08/14/23 07:35
Lab Results - Hematology
08/12/23 08/13/23 08/14/23
10:10 07:36 06:31
WBC 22.6 H 13.4 H 9.4
Lab Results - Chemistry
08/12/23 08/13/23 08/14/23
10:10 07:36 06:31
BUN 15 17 13
Creatinine 0.7 0.7 0.7
Estimated Creat Clear > 125 > 125 > 125
Albumin 4.5
Microbiology Results
08/12/23 10:00 Blood Culture - Preliminary
Blood/Venous No Growth in 48 hours- Final report to follow
08/13/23 12:56 Body Fluid Culture - Preliminary
Synovial Fluid No Growth After 18-24 Hours
Gram Stain - Preliminary
08/12/23 10:30 Blood Culture - Preliminary
Blood/Venous Positive culture in progress
Gram Stain - Preliminary
08/12/23 18:19 MRSA Screen - Final
Nose No Methicillin Resistant Staphylococcus aureus isolated.
[2023-08-14 15:00] VITALS: BP 122/72
[2023-08-14] MEDS: LOVENOX 40 MG SC (17:11)
[2023-08-14] MEDS: MOTRIN 400 MG PO (20:10)
[2023-08-14 21:57] LABS: Vancomycin Peak 19.3 ug/ml (18-26)
--- NOTE | 2023-08-14 21:58 | W.PN.UPDATE ---
Update Note
Progress Note Update
Blood culture result shows Gram stain of anaerobic blood culture bottle reveals Budding yeast.
-WBC this am 9.4, current temp is 99.2. Patient was admitted with rapidly progressive RLE erythema cellulitis.
-Per patient, RT Leg sanchez continue with erythema but improved, RT foot swelling and erythema is getting worse. RT foot is warm touch with tenderness on exam. Patient currently on vancomycin and Cefazolin.
-Infectious disease consulted and new recommendation to repeat blood culture x2 and start Micafungin 100 mg q 24hrs.
[2023-08-14] MEDS: MYCAMINE 105 MG IV (22:17)
[2023-08-14 23:45] VITALS: BP 127/75
[2023-08-15] MEDS: ANCEF 10 IV ×2 (03:01→11:17)
--- NOTE | 2023-08-15 06:56 | W.PN.HOSP.TC ---
Addendum entered and electronically signed by Kamini Wheatley MD 08/16/23 03:24:
Fever Leukocytosis Sepsis POA resolved
Original Note:
Today's Communication/Plan
-
cont abx as per ID
follow cultures
npo after midnight for possible arthroscopic I&D as per orthopedic
check right foot XR
Assessment / Plan
Assessment / Plan
Physical Exam
General: No pallor, cyanosis, or jaundice.
HEENT: Throat clear. PERRLA Normocephalic atraumatic
NECK: Supple. No JVD Carotid Bruits
RESPIRATORY: Lungs clear to auscultation. No crackles wheezes stridor
CVS: S1, S2 normal. RRR. No murmur, rub or gallop.
ABDOMEN: Soft, non-tender. No distension. BS+/normal.
EXTREMITIES: Right lower extremity erythema noted dorsal right foot mid right sanchez (resolving), some swelling mild palpable effusion right knee noted nontender, persistent right foot swelling
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
IMPRESSION:
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 Rash started from a small wound right
foot patient obtained a week ago while doing yard work.
PLAN:
#Severe cellulitis
#Right knee foot pain arthritis swelling
MRSA screen neg vancomycin discontinued
prelim single anaerobic bottle pos for gram neg bacilli, single anaerobic bottle pos for yeast, follow up speciation, blood cultures repeated NGTD
ID eval appreciated empiric cefazolin converted to Unasyn, cont micafungin
knee x-ray appreciated no fractures, possible suprapatellar effusion (effusion is notable and palpable on physical exam)
Pain control as needed Tylenol ibuprofen Dilaudid
Fever high 100.8 overnight 08/11 since resolved
Leukocytosis resolved
Orthopedic eval appreciated s/p arthrocentesis 08/12 85 cc fluid removed, arthrocentesis fluid cx NGTD, arthrocentesis repeated 08/13 50 cc fluid, considering arthroscopic I&D
Checking Right Foot XR
#Hypertension
Continue home amlodipine and losartan with holding parameters
#EKG notes NSR new left bundle branch block mild QT prolongation
Follow-up repeat EKG in a.m. continues to note LBBB, QT improved
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
outpatient follow up recommended
PT/OT appreciated possible benefit outpt PT vs no needs
DVT prophylaxis Lovenox
GI prophylaxis Protonix
Full code
I spent a total of 50 minutes with the patient or on the floor. More than 50% of this time involved counseling and coordination of care.
Anticipated Discharge: 24 - 48 hours
Subjective/Interval History
-
Date of Service: August 15, 2023
Ambulation improved no longer requiring assist device. Pain right knee improved though swelling persists. Right foot swelling also persist.
Objective Data
-
Labs:
Laboratory Results
08/15/23
06:00
WBC Pending
Hgb Pending
Hct Pending
Plt Count Pending
Sodium Pending
Potassium Pending
Chloride Pending
Carbon Dioxide Pending
BUN Pending
Creatinine Pending
Glucose Pending
Calcium Pending
Vital Signs:
Vital Signs
Temp Pulse Resp BP Pulse Ox
98.2 F 79 19 127/75 94
08/14/23 23:45 08/14/23 23:45 08/14/23 23:45 08/14/23 23:45 08/14/23 23:45
I&O
08/13/23 08/14/23 08/15/23
06:59 06:59 06:59
Intake Total 1416 / 1416 180 / 180
Output Total 200 / 200 450 / 450
Balance -200 / -200 1416 / 1416 -270 / -270
[2023-08-15] MEDS: THERAGRAN 1 TABLET PO (07:10)
[2023-08-15] MEDS: FOLVITE 1 MG PO (07:10)
[2023-08-15] MEDS: THIAMINE INJECTION 200 MG IV (07:10)
[2023-08-15] MEDS: PROTONIX 40 MG PO (07:10)
[2023-08-15] MEDS: NORVASC 10 MG PO (07:13)
[2023-08-15 07:14] VITALS: BP 149/92
[2023-08-15] MEDS: COZAAR 100 MG PO (07:14)
--- NOTE | 2023-08-15 08:20 | W.PN.UPDATE ---
Update Note
Progress Note Update
Patient reports right knee pain feeling much better today. He does have moderate effusion without warmth, erythema or pain. Passive motion is nonpainful. Right knee was cleaned and prepped meticulously then 50 mL slightly cloudy yellow joint
fluid was aspirated. Compressive dressing placed. Cultures are still pending. I will allow him to eat today but he will be n.p.o. after midnight and tentatively placed on the OR schedule in case he does not improve by tomorrow or cultures become
positive.
[2023-08-15 09:26] LABS: Hematocrit 37.9 % (39.0-52.0); Hemoglobin 12.7 g/dL (13.0-18.0); Mean Corp Hgb Conc. 33.5 g/dL (33.0-37.0); Mean Corpuscular Hgb 31.1 pg (27.0-31.0); Mean Corpuscular Volume 92.9 fL (80.0-94.0); Mean Platelet Volume 10.1 fL (7.4-10.4); Platelet Count 229 10^3/uL (130-400); Red Blood Cell Count 4.08 10^6/uL (4.70-6.10); Red Cell Dist. Width 12.6 % (11.5-14.5); White Blood Cell Count 8.6 10^3/uL (4.8-10.8)
[2023-08-15 10:27] LABS: Blood Urea Nitrogen 12 mg/dl (9-20); Calcium 9.2 mg/dl (8.4-10.2); Carbon Dioxide 24 mmol/L (22-30); Chloride 107 mmol/L (98-107); Estimated Creatinine Clearance > 125 ml/min; Glucose 105 mg/dl (70-99); Magnesium 2.2 mg/dl (1.6-2.3); Potassium 4.2 mmol/L (3.5-5.1); Sodium 140 mmol/L (135-145); eGFR > 60.00
--- NOTE | 2023-08-15 12:19 | PN.CDI ---
CDI
- -
CDI:
Physician Documentation Request
Admit Date: 08/12/23 14:18
Dear Doctor Dioni,
Patient admitted for cellulitis.
08/13 Hospitalist PN: 'Severe cellulitis...Empiric IV cefazolin and vancomycin...Fever high 100.8 overnight 08/11 since resolved'
Laboratory Tests
08/12/23
10:10
WBC 22.6 H
08/12/23
17:59 08/12/23
23:11
Temp 100.8 F H 100.5 F H
08/12/23
10:10 08/12/23
10:15 08/12/23
11:15
Resp Rate 29 35 34
08/12/23
09:19 08/12/23
10:11
Pulse 108 92
Please clarify which of the following most accurately describes the status of the patient's infection:
Sepsis, POA
- Systemic manifestations of infection, with 2 or more SIRS criteria which include:
- Fever >100.4 degrees F or hypothermia < 96.8 degrees F
- Leukocytosis - WBC > 12,000 or leukopenia - WBC < 4,000 or > 10% bands
- Tachycardia > 90 beats per minute
- Tachypnea - RR > 20 breaths per minute or PaCO2 , 32mmHg
Source: Merck Manual 2013
Localized Infection Only, Without Systemic Illness
Other
Use of terms such as suspected, likely, concern for, or probable (associated with a specific diagnosis that is being evaluated, monitored, or treated as if it exists) are acceptable and can be coded in the inpatient setting, when documented at the
time of discharge.
Thank you,
Geetha Gamez RN, BSN
CDI Specialist
Available via [employer] text
Please use your independent medical judgment in providing your response.
--- NOTE | 2023-08-15 12:41 | CM ---
Patient sen bedside.
Knee tapped this morning.
Per patient ambulated in [place] with PT.
Feeling better.
Await cultures.
Watch for need for home IV anbx.
Plan: home when stable.
--- NOTE | 2023-08-15 13:15 | CON.ID ---
Consultation
-
Date/Time Consultation Requested: 08/14/23 21:19
Date/Time Consultation Performed: 08/15/23 13:16
Requesting Provider: Shy
Performing Provider: Dr Villar
Reason for Consultation: + blood culture budding yeast
Chief Complaint / Past History
Chief Complaint
RLE rash, abdominal pain
History of Present Illness
Mr Bird is a 63 year old male with past medical history notable for obesity who presented here 08/11 for fever to 102, nausea, abdominal pain, appetite loss; also with pain, redness, swelling of the right foot to knee after suffering a minor
superifical abrasion while doing yard work without ulceration. Subsequently noted redness and minimal erythema of the dorsal foot and distal leg. No known tinea pedis or itching between the toes. No trauma to the knee. Not giving himself any
injections at home. Only hardwear is lumbar spine and no history of infection. No residential catheters.
Last colonoscopy was 2 years ago by report with GI endoscopy center in [place]. Reports no significant lesions.
Since arrival here tmax 100.8 - improving, bp stable, wbc on arrival was 22 now 8.6, hgb 12, plt 229, L shift was noted on arrival, cr 0.6, t bili 1.7, ast 26, alt 19, alk phos 103, knee effusion was noted and drained with 47,000 wbc, 90% PMNs, no
crystals, lyme serologies sent, lyme pcr sent on the synovial fluid, blood cultures from arrival were done 30 minutes apart, first set with budding yeast, second set also positive with a GNR in the anaerobic bottle only, body fluid no growth at 48
hrs and no organisms on the gram stain, repeat blood cultures x2 are no growth to date, currently on cefazolin and micafungin, has previously received vancomycin. He and his do report mild redness of the dorsal right foot and the leg - not
contiguous. The knee itself was grossly swollen on arrival but is now much less swollen post two arthrocenteses. ID is consulted for candidemia
Past History
Additional Past Medical History:
HTN, diverticulosis
Additional Past Surgical History:
Lumbar laminectomy June 2011
Allergy History:
No Known Allergies Allergy (Verified 08/12/23 09:18)
Medications Reviewed: Yes
Social History
Tobacco: Non-Smoker
Alcohol: Occasional
Drug: Marijuana
Family History
Family History: Not Pertinent
Review of Systems
Review of Systems
General: Negative Fever or Chills
All systems: All other systems were reviewed and were negative
Vital Signs
Temp Pulse Resp BP Pulse Ox
98.0 F 89 18 149/92 98
08/15/23 07:25 08/15/23 07:14 08/15/23 07:14 08/15/23 07:14 08/15/23 07:14
Physical Exam
Physical Exam
Constitutional: No Acute Distress
Cardiovascular: Regular Rate and S1/S2; Negative Murmur or Rub
Pulmonary: Clear and Symmetric; Negative Wheezes, Rales or Rhonchi
Gastrointestinal: Soft, Non Tender, Non Distended and Normal Bowel Sounds
Extremities: Other (R knee with minimal swelling, no erythema, warmth or tenderness; R leg with patchy, mild erythema and also edema of the leg and foot. No purulence. )
Skin: Warm and Dry; Negative Rash or Jaundice
Lab / Diagnostic Study Results
08/15/23 08:27
08/15/23 08:27
Abs Immat Gran (auto) 0.1 10^3/uL (0-0.05) H 08/12/23 10:10
Absolute Neuts (auto) 20.3 10^3/uL (1.4-6.5) H 08/12/23 10:10
Absolute Lymphs (auto) 1.1 10^3/uL (1.2-3.4) L 08/12/23 10:10
Absolute Monos (auto) 1.0 10^3/uL (0.1-0.6) H 08/12/23 10:10
Absolute Basos (auto) 0.1 10^3/uL (0-0.2) 08/12/23 10:10
Immature Gran % 0.4 % (0-0.5) 08/12/23 10:10
Neutrophils % 90.0 % (42.2-75.2) H 08/12/23 10:10
Lymphocytes % 4.7 % (20.5-51.1) L 08/12/23 10:10
Monocytes % 4.6 % (1.7-9.3) 08/12/23 10:10
Eosinophils % 0.0 % (0-6) 08/12/23 10:10
Basophils % 0.3 % (0-2) 08/12/23 10:10
Microbiology Results
Micro:
08/12/23 10:00 Blood Culture - Preliminary
Blood/Venous Positive culture in progress
Gram Stain - Preliminary
08/12/23 10:30 Blood Culture - Preliminary
Blood/Venous Positive culture in progress
Gram Stain - Preliminary
08/13/23 12:56 Body Fluid Culture - Preliminary
Synovial Fluid No Growth After 48 Hours
Gram Stain - Preliminary
08/14/23 10:07 Blood Culture - Preliminary
Blood/Venous No Growth in 24 hours- Final report to follow
08/14/23 09:34 Blood Culture - Preliminary
Blood/Venous No Growth in 24 hours- Final report to follow
08/14/23 22:20 Blood Culture - Pending
Blood/Venous
08/14/23 21:46 Blood Culture - Pending
Blood/Venous
08/12/23 18:19 MRSA Screen - Final
Nose No Methicillin Resistant Staphylococcus aureus isolated.
Assessment / Plan
Probable Candidemia - blood culture with budding yeast
Gram negative bacteremia - possibly anaerobic
Possible septic joint
- no single unifying diagnosis apparent at this time. Combination of gram negative bacteremia and candidemia most suggestive of a GI source of bacteremia though patient notably asymptomatic and did have a colonoscopy 2 years ago by report that was
not revealing. Not giving himself any prescribed IV medications at home. No long therm catheters.
- repeat blood cultures no growth to date
- UA reflex to culture
- knee fluid culture in progress - no growth to date
- would agree with washout of the knee
- CT a/p with IV and oral contrast
- last colonoscopy was 2 years ago - requested copy from Dr Lowe in [place]
- no residential catheters
- QTc 460
- agree with micafungin at this time
- switched cefazolin to unasyn
- follow clinically
[2023-08-15 15:00] VITALS: BP 124/68
[2023-08-15] MEDS: OMNIPAQUE 50 ML PO (15:13)
[2023-08-15 17:26] LABS: Urine Albumin Negative (Neg - Trace); Urine Bilirubin Negative (Negative); Urine Character Clear (Clear); Urine Color Yellow; Urine Glucose Negative (Negative); Urine Ketone Negative (Negative); Urine Leukocyte Negative (Negative); Urine Nitrite Negative (Negative); Urine Occult Blood Negative (Negative); Urine Specific Gravity 1.015 (<1.030); Urine Urobilinogen Negative (Neg - 1+)
[2023-08-15] MEDS: LOVENOX 40 MG SC (18:13)
[2023-08-15] MEDS: UNASYN IV ×2 (18:14→23:05)
[2023-08-15] MEDS: VITAMIN B1 100 MG PO (19:47)
[2023-08-15] MEDS: MYCAMINE 105 MG IV (21:20)
[2023-08-15] MEDS: MOTRIN 400 MG PO (22:21)
[2023-08-15 23:00] VITALS: BP 148/72
[2023-08-16] MEDS: UNASYN IV ×2 (05:08→12:02)
--- NOTE | 2023-08-16 07:24 | W.PN.HOSP.TC ---
Addendum entered and electronically signed by Kamini Wheatley MD 08/16/23 15:40:
Discussed with patient LBBB is not new has already had work up with outpatient clinical nurse educator
Original Note:
Today's Communication/Plan
-
discharge
Assessment / Plan
Assessment / Plan
Physical Exam
General: No pallor, cyanosis, or jaundice.
HEENT: Throat clear. PERRLA Normocephalic atraumatic
NECK: Supple. No JVD Carotid Bruits
RESPIRATORY: Lungs clear to auscultation. No crackles wheezes stridor
CVS: S1, S2 normal. RRR. No murmur, rub or gallop.
ABDOMEN: Soft, non-tender. No distension. BS+/normal.
EXTREMITIES: Right lower extremity erythema noted dorsal right foot mid right sanchez (resolving), swelling Rt knee Rt foot resolving REENA bandaging in place
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
IMPRESSION:
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 Rash started from a small wound right
foot patient obtained a week ago while doing yard work.
PLAN:
#Severe cellulitis
#Anaerobic Bacteremia
#Right knee foot pain arthritis swelling
MRSA screen neg empiric vancomycin discontinued
prelim anaerobic bottles pos for gram neg bacilli, repeat blood cultures NGTD
empiric cefazolin converted to Unasyn, initial blood culture pos for yeast found to be artifact empiric micafungin discontinued
ID eval appreciated CT abd/pelvis w/o source anaerobic bacteremia, PO Keflex QID 7 days (cellulitis), PO Metro 500 mg TID x4 wks (anaerobic bacteremia)
knee x-ray appreciated no fractures, possible suprapatellar effusion (effusion is notable and palpable on physical exam)
Pain control as needed Tylenol ibuprofen Dilaudid
Fever high 100.8 overnight 08/11 since resolved
Leukocytosis resolved
Orthopedic eval appreciated s/p arthrocentesis 08/12 85 cc fluid removed, arthrocentesis fluid cx NGTD, arthrocentesis repeated 08/13 50 cc fluid, considering arthroscopic I&D
Right Foot XR appreciated calcaneal osteophyte/heel spur otherwise no acute abn's
#Hypertension
Continue home amlodipine and losartan with holding parameters
#EKG notes NSR new left bundle branch block mild QT prolongation
Follow-up repeat EKG in a.m. continues to note LBBB, QT improved
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
outpatient follow up with primary recommended
PT/OT appreciated improvement over the course hospitalization, no needs noted at this time.
DVT prophylaxis Lovenox
GI prophylaxis Protonix
Full code
Medically stable for discharge home with outpatient follow up recommendations.
Anticipated Discharge: Today
Subjective/Interval History
-
Date of Service: August 16, 2023
Seen and examined at bedside in no acute distress reports significant improvement in overall symptoms including pain swelling right lower extremity knee and foot
Objective Data
-
Labs:
Laboratory Results
08/16/23
06:00
WBC Pending
Hgb Pending
Hct Pending
Plt Count Pending
Sodium Pending
Potassium Pending
Chloride Pending
Carbon Dioxide Pending
BUN Pending
Creatinine Pending
Glucose Pending
Calcium Pending
Vital Signs:
Vital Signs
Temp Pulse Resp BP Pulse Ox
98.3 F 73 20 148/72 93
08/15/23 23:00 08/15/23 23:00 08/15/23 23:00 08/15/23 23:00 08/15/23 23:00
I&O
08/15/23 08/16/23 08/17/23
06:59 06:59 06:59
Intake Total 525 / 525 1305 / 1305
Output Total 450 / 450 300 / 300
Balance 75 / 75 1005 / 1005
--- NOTE | 2023-08-16 07:38 | W.PN.UPDATE ---
Update Note
Progress Note Update
Patient seen and evaluated. Feeling better. Afebrile. Right knee without erythema. ROM 0-120 degrees. No increased warmth. No significant effusion this AM. Right foot swelling markedly improved as well. Will enter a diet and no surgical
intervention anticipated. Knee fluid cultures negative. Will follow.
[2023-08-16 07:50] VITALS: BP 143/97
[2023-08-16 08:30] LABS: Lyme Disease DNA by PCR Not Detected; Lyme Source Synovial fluid
[2023-08-16 08:37] LABS: Hematocrit 39.7 % (39.0-52.0); Hemoglobin 13.3 g/dL (13.0-18.0); Mean Corp Hgb Conc. 33.5 g/dL (33.0-37.0); Mean Corpuscular Hgb 31.1 pg (27.0-31.0); Mean Platelet Volume 9.4 fL (7.4-10.4); Platelet Count 258 10^3/uL (130-400); Red Blood Cell Count 4.27 10^6/uL (4.70-6.10); Red Cell Dist. Width 12.7 % (11.5-14.5); White Blood Cell Count 7.6 10^3/uL (4.8-10.8)
[2023-08-16] MEDS: VITAMIN B1 100 MG PO (08:42)
[2023-08-16] MEDS: FOLVITE 1 MG PO (08:42)
[2023-08-16] MEDS: PROTONIX 40 MG PO (08:42)
[2023-08-16] MEDS: COZAAR 100 MG PO (08:43)
[2023-08-16] MEDS: NORVASC 10 MG PO (08:43)
[2023-08-16] MEDS: THERAGRAN 1 TABLET PO (08:43)
[2023-08-16 09:11] LABS: Glycohemoglobin (HgbA1c) 5.4 % (4.0-5.6)
[2023-08-16 09:19] LABS: Blood Urea Nitrogen 12 mg/dl (9-20); Carbon Dioxide 27 mmol/L (22-30); Chloride 107 mmol/L (98-107); Estimated Creatinine Clearance > 125 ml/min; Glucose 108 mg/dl (70-99); Magnesium 2.2 mg/dl (1.6-2.3); Potassium 4.7 mmol/L (3.5-5.1); Sodium 141 mmol/L (135-145); eGFR > 60.00
--- NOTE | 2023-08-16 09:30 | PTOTSP ---
Patient independent with all mobility and stair climbing without a device. No skilled PT needs, will sign off.
--- NOTE | 2023-08-16 13:47 | CM ---
Addendum entered by Liz Garcia 08/16/23 15:54:
Plan home today, no needs.
Original Note:
Patient seen bedside, chart reviewed,
No surgery needed at this time.
Continues on IV anbx.
Plan: home with possible IV anbx vs oral.
--- NOTE | 2023-08-16 14:48 | W.PN.ID1 ---
Date of Service
Date of Service: August 16, 2023
Today's Communication
see plan
Assessment / Plan
Anaerobic bacteremia
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
Nonpurulent cellulitis of the foot and distal leg
- yeast was reevaluated and found to be a lab artifact
- stopped micafungin
- CT a/p without source of anaerobic bacteremia
- anaerobic bacteremia and fluid studies most suggestive of septic joint; he has had aspiration x2 and no washout is planned per surgery at this time
- metronidazole is high bioavilability oral - plan metro 500 mg PO TID x4 more weeks
- reviewed disulfram reaction with patient/
- advise against steroid injections into the right knee for the next 3 months
- for cellulitis keflex 500 mg PO QID x7 more days
- follow up with PCP
Chief Complaint
-: Cellulitis and Other (septic joint)
Subjective / Review of Systems
afebrile
bp stable
repeat blood cultures no growth to date
slides re-reviewed and yeast was found to be a lab artifact - the GNR was re-IDd in the same culture where there was a previous concern for yeast
walking briksly in the halls
Vital Signs / Physical Exam
Vital Signs
Vital Signs
Temp Pulse Resp BP Pulse Ox
98.1 F 81 18 143/97 98
08/16/23 07:50 08/16/23 07:50 08/16/23 07:50 08/16/23 07:50 08/16/23 08:40
Physical Exam
Constitutional: No Acute Distress
Cardiovascular: Regular Rate and S1/S2; Negative Murmur or Rub
Pulmonary: Clear and Symmetric; Negative Wheezes or Rales
Gastrointestinal: Soft, Non Tender, Non Distended and Normal Bowel Sounds
Extremities: Other (minimal swelling, no erythema, no warmth; able to bear weight)
Skin: Warm and Dry; Negative Rash or Jaundice
Objective Data
Lab Data
Lab Results
08/16/23 08:17
08/16/23 08:17
Estimated Creat Clear > 125 ml/min 08/16/23 08:17
Total Bilirubin 1.7 mg/dl (0.2-1.3) H 08/12/23 10:10
AST 26 U/L (17-59) 08/12/23 10:10
ALT 19 U/L (0-50) 08/12/23 10:10
Alkaline Phosphatase 103 U/L (38-126) 08/12/23 10:10
Most recent labs reviewed.
Micro Results:
08/12/23 10:30 Blood Culture - Preliminary
Blood/Venous Anaerobic gram neg bacilli
Gram Stain - Preliminary
08/12/23 10:00 Blood Culture - Preliminary
Blood/Venous Anaerobic gram neg bacilli
Gram Stain - Preliminary
08/13/23 12:56 Body Fluid Culture - Final
Synovial Fluid No Growth After 72 Hours
Gram Stain - Final
08/14/23 10:07 Blood Culture - Preliminary
Blood/Venous No Growth in 48 hours- Final report to follow
08/14/23 09:34 Blood Culture - Preliminary
Blood/Venous No Growth in 48 hours- Final report to follow
08/14/23 22:20 Blood Culture - Preliminary
Blood/Venous No Growth in 24 hours- Final report to follow
08/14/23 21:46 Blood Culture - Preliminary
Blood/Venous No Growth in 24 hours- Final report to follow
08/12/23 18:19 MRSA Screen - Final
Nose No Methicillin Resistant Staphylococcus aureus isolated.
Care Review
Plan reviewed with: Physician (Dr Dioni urbina and dispo)
--- NOTE | 2023-08-16 15:22 | W.DCSUMMARY ---
Discharge Summary
Discharge Data
Date of Admission: 08/12/23
Date of Discharge: 08/16/23
-
Pending Results: Yes
Additional Pending Results:
official culture results
Hospital Course
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 Leukocytosis 22 noted in ED. Rash started from a small wound right foot patient
obtained a week ago while doing yard work. Severe cellulitis, initial anaerobic blood cultures return positive for gram neg bacilli, anaerobic bacteremia. Right knee foot pain arthritis swelling. MRSA screen neg empiric vancomycin discontinued.
Empiric cefazolin was converted to Unasyn, initial blood culture pos for yeast found to be artifact empiric micafungin discontinued. ID evaluated with CT abd/pelvis w/o source anaerobic bacteremia noted, PO Keflex QID 7 days (cellulitis), PO Metro
500 mg TID x4 wks (anaerobic bacteremia) were recommended on discharge. Knee x-ray appreciated no fractures, possible suprapatellar effusion (effusion was notable and palpable on physical exam). Fever high 100.8 overnight 08/11 since resolved
Leukocytosis resolved. Orthopedic evaluated and performed arthrocentesis 08/12 85 cc fluid removed, arthrocentesis fluid cx NGTD, arthrocentesis repeated 08/13 50 cc fluid, arthroscopic I&D was considered but ultimately assessed to be not necessary
at this time given overall clinical improvement as per Orthopedic. Right Foot XR appreciated calcaneal osteophyte/heel spur otherwise no acute abn's. EKG evaluation noted LBBB, patient reported known and previously had work up done with outpatient
long distance operator. Medically stable, patient was discharged home with oral antibiotics and outpatient follow up recommendations.
Discharge Plan
-
Patient Disposition: Home (Routine Discharge)
Discharge Diagnosis/Procedures: Anaerobic bacteremia
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
Nonpurulent cellulitis of the foot and distal leg
Hypertension
Left Bundle Branch Block
right heel Calcaneal osteophyte/heel spur
Condition: Good
Diet: Regular
Activity: As tolerated
Driving Restrictions: As prior to admission
Bathing Restrictions: None
Activity Restrictions/Additional Instructions:
Please follow up with primary care provider in 1 week of discharge and Orthopedic in 2 weeks of discharge.
For cellulitis, you've been prescribed oral Keflex 500 mg four times a day for 7 days.
For anaerobic bacteremia, you've been prescribed oral Flagyll 500 mg three times a day for 4 weeks.
Please take medications as prescribed/recommended and follow up with primary care provider and/or other healthcare provider involved in your care for refills and/or further adjustment to your medication regimen as necessary.
Referrals:
Freddie Zaidi MD [Active] - in two weeks
Lizette Lamar MD [Family Provider] - in one week
Prescriptions:
New
metronidazole 500 mg Tablet
500 mg PO Q8 28 Days Qty: 84 0RF
cephalexin 500 mg Capsule
500 mg PO QID 7 Days Qty: 28 0RF
Continued
therapeutic multivitamin Tablet
1 tab PO DAILY
amlodipine 10 mg tablet
10 mg PO DAILY
diphenhydramine HCl [Benadryl] 25 mg Capsule
50 mg PO DAILYPRN PRN (Reason: allergic reaction)
ibuprofen 200 mg Tablet
400 mg PO Q6H PRN (Reason: mild pain)
losartan 100 mg tablet
100 mg PO DAILY
Artificial Tears (PF) Dropperette
1 drp BOTH EYES QIDPRN PRN (Reason: dry eyes)
Discharge Orders:
Discharge Patient (As Directed); Ordered 08/16/23
Ordered By: Kamini Wheatley
Discharge Date and Time
Discharge Date/Time: 08/16/23 17:23
Print Language: MALAYSIAN
[2023-08-16 15:48] VITALS: BP 157/98
[2023-08-16] MEDS: KEFLEX 500 MG PO (16:10)
[2023-08-16] MEDS: FLAGYL 500 MG PO (16:10)
[2023-08-16] MEDS: LOVENOX SC (16:11)
--- NOTE | 2023-08-16 16:24 | PTCARENOTE ---
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 Patient transported via wheelchair to discharge lounge to wait for his that will be here 1715/1730
== END 2023-08-16 17:23 | disposition home or self-care (01) | DRG 872 ==
LOC: 4 WEST ACU 14:18
PROVIDERS: Physician Assistant; Physician Assistant Surgical; ADMITTING PHYSICIAN Internal Medicine; CONSULT PHYSICIAN Orthopaedic Surgery; EMERGENCY PHYSICIAN Student in an Organized Health Care Education/Training Program; FAMILY PHYSICIAN Internal Medicine; OTHER PHYSICIAN Student in an Organized Health Care Education/Training Program
DX: A41.9 Sepsis, unspecified organism (principal); L03.115 Cellulitis of right lower limb; I10 Essential (primary) hypertension
CPT/HCPCS: 73560; 73620; 74177; 80048; 80053; 80202; 81003; 83036; 83735; 85025; 85027; 86803; 87015; 87040; 87070; 87205; 87476; 89051; 89060; 93005; 96374; 96375; 97116; 97162; 97165; 99285; Q9967

== ENCOUNTER → 2023-11-04 11:53 | Outpatient (REF) | payer OTHER, SELFPAY ==
[2023-11-04 13:12] LABS: % Basophils 0.8 % (0-2); % Immature Granulocytes 0.4 % (0-0.5); % Lymphocytes 31.6 % (20.5-51.1); % Monocytes 7.9 % (1.7-9.3); % Neutrophils 55.3 % (42.2-75.2); Absolute Basophils 0.1 10^3/uL (0-0.2); Absolute Eosinophils 0.4 10^3/uL (0-0.7); Absolute Lymphocytes 2.9 10^3/uL (1.2-3.4); Absolute Monocytes 0.7 10^3/uL (0.1-0.6); Absolute Neutrophils 5.1 10^3/uL (1.4-6.5); Hematocrit 41.4 % (39.0-52.0); Hemoglobin 14.5 g/dL (13.0-18.0); Mean Corpuscular Volume 91.4 fL (80.0-94.0); Mean Platelet Volume 10.2 fL (7.4-10.4); Nucleated Red Blood Cells % 0 % (-); Platelet Count 229 10^3/uL (130-400); Red Blood Cell Count 4.53 10^6/uL (4.70-6.10); White Blood Cell Count 9.2 10^3/uL (4.8-10.8)
[2023-11-04 13:55] LABS: Blood Urea Nitrogen 20 mg/dl (9-20); Calcium 10.1 mg/dl (8.4-10.2); Carbon Dioxide 22 mmol/L (22-30); Chloride 104 mmol/L (98-107); Glucose 88 mg/dl (70-99); Potassium 4.4 mmol/L (3.5-5.1); Sodium 136 mmol/L (135-145); eGFR > 60.00
== END ==
LOC: REG 11:53
PROVIDERS: ATTENDING PHYSICIAN Orthopaedic Surgery; FAMILY PHYSICIAN Internal Medicine
DX: Z01.818 Encounter for other preprocedural examination (principal)
CPT/HCPCS: 36415; 80048; 85025; 93005